=== PATIENT | male | born 1940 | race African-American/Black ===

== ENCOUNTER → 2018-01-31 | Outpatient (CLI) | payer BC ==
[~2018-01-31] MED LIST: ACET325; ASCO500; ASCO500 PO; ASPI325 PO; ASPI81CH PO; ASPI81EC PO; AZOPT 1% OU; AZOR PO; Azopt10 ML BOTHEYES; CHOL10002; CHOL10002 PO; FISH1000; FISH1000 PO; GABA100 PO; HTN MED; HYDCHL12.5; HYDCHL25 PO; METO50ER PO; OXYACE5T PO; PIOG30 PO; ROSU10TA; ROSU5 PO; SITA100T2 PO; SODCHL.65S; Tylenol325 MG PO
== END | disposition home or self-care (01) ==
LOC: PLD 07:47
DX: R31.0 Gross hematuria (principal)
CPT/HCPCS: 88108

== ENCOUNTER 2019-06-06 11:47 | Day surgery (SDC) | payer BC, MEDICARE ==
[~2019-06-06] VITALS: Ht 160 cm; Wt 77.4 kg
[2019-06-06] MEDS ORDERED: SITA100T2 PO (12:22)
[2019-06-06] MEDS ORDERED: PIOG30 PO (12:22)
[2019-06-06] MEDS ORDERED: LOSARTAN POTAS100 MG PO (12:23)
[2019-06-06] MEDS ORDERED: METO50ER PO (12:23)
[2019-06-06] MEDS ORDERED: FINA5 PO (12:23)
[2019-06-06] MEDS ORDERED: DORZOPSO BOTHEYES (12:24)
[2019-06-06] MEDS ORDERED: ALLO300 PO (12:24)
[2019-06-06] MEDS ORDERED: Ferus150 MG (12:24)
[2019-06-06] MEDS ORDERED: ASCO500 PO (12:25)
[2019-06-06] MEDS ORDERED: ACET500 PO (12:25)
[2019-06-06] MEDS ORDERED: GABA100 PO (12:25)
[2019-06-06] MEDS ORDERED: ALBU90OI61 INH (12:25)
[2019-06-06] MEDS ORDERED: Aspirin EC81 MG PO (12:25)
[2019-06-06] MEDS ORDERED: VITAMIN D32000 UNIT PO (12:26)
[2019-06-06] MEDS ORDERED: Fish Oil 10001000 MG PO (12:26)
== END 2019-06-06 14:08 | disposition home or self-care (01) ==
LOC: ORSCSDS 11:47
PROVIDERS: Internal Medicine Gastroenterology
PROC: 0DJD8ZZ Inspection of Lower Intestinal Tract, Via Natural or Artificial Opening Endoscopic (ICD-10-PCS; principal; 2019-06-06 13:00)
DX: Z12.11 Encounter for screening for malignant neoplasm of colon (principal); Z86.010 Personal history of colon polyps; K64.8 Other hemorrhoids; J45.909 Unspecified asthma, uncomplicated; J84.10 Pulmonary fibrosis, unspecified; J98.4 Other disorders of lung; E11.9 Type 2 diabetes mellitus without complications; E78.00 Pure hypercholesterolemia, unspecified; I10 Essential (primary) hypertension; G47.33 Obstructive sleep apnea (adult) (pediatric); Z79.899 Other long term (current) drug therapy; Z79.82 Long term (current) use of aspirin
CPT/HCPCS: 82947; J0706; J2704; J2785; J7120

== ENCOUNTER 2019-10-05 05:05 | Emergency (ER) | payer MEDICARE ==
[~2019-10-05] VITALS: Ht 160 cm; Wt 74.8 kg
[~2019-10-05 05:05] MED LIST changes: +ACET500 PO; +ALBU90OI61 INH; +ALLO300 PO; +Aspirin EC81 MG PO; +DORZOPSO BOTHEYES; +FINA5 PO; +Ferus150 MG; +Fish Oil 10001000 MG PO; +LOSARTAN POTAS100 MG PO; +VITAMIN D32000 UNIT PO
== END 2019-10-05 06:00 | disposition home or self-care (01) ==
LOC: ER 05:05
DX: R11.10 Vomiting, unspecified (principal); T50.B95A Adverse effect of other viral vaccines, initial encounter; I10 Essential (primary) hypertension; E78.5 Hyperlipidemia, unspecified; Z88.8 Allergy status to other drugs, medicaments and biological substances; Z88.1 Allergy status to other antibiotic agents; Z79.899 Other long term (current) drug therapy; Z79.82 Long term (current) use of aspirin
CPT/HCPCS: 99283

== ENCOUNTER 2022-09-30 09:24 | Day surgery (SDC) | payer MEDICARE ==
[~2022-09-30] VITALS: Ht 160 cm; Wt 71.6 kg
[2022-09-30] MEDS ORDERED: Alphagan P5 ML (09:56)
[2022-09-30] MEDS ORDERED: GABA100 (09:57)
[2022-09-30] MEDS ORDERED: LATA.005SO (09:57)
[2022-09-30] MEDS ORDERED: LIDO700A20 (09:57)
[2022-09-30] MEDS ORDERED: METF500 (09:57)
[2022-09-30] MEDS ORDERED: HYDCHL25 (09:57)
[2022-09-30] MEDS ORDERED: ROSU5 (09:58)
[2022-09-30] MEDS ORDERED: PIOG15 (09:58)
== END 2022-09-30 12:26 | disposition home or self-care (01) ==
LOC: ORSCSDS 09:24
PROVIDERS: Internal Medicine Gastroenterology
PROC: 0DBN8ZX Excision of Sigmoid Colon, Via Natural or Artificial Opening Endoscopic, Diagnostic (ICD-10-PCS; principal; 2022-09-30 11:00)
DX: Z12.11 Encounter for screening for malignant neoplasm of colon (principal); Z86.010 Personal history of colon polyps; K64.8 Other hemorrhoids; I12.9 Hypertensive chronic kidney disease with stage 1 through stage 4 chronic kidney disease, or unspecified chronic kidney disease; E11.22 Type 2 diabetes mellitus with diabetic chronic kidney disease; N18.9 Chronic kidney disease, unspecified; Z79.84 Long term (current) use of oral hypoglycemic drugs; Z79.899 Other long term (current) drug therapy; G47.33 Obstructive sleep apnea (adult) (pediatric); J45.909 Unspecified asthma, uncomplicated; I50.9 Heart failure, unspecified
CPT/HCPCS: 82947; 88305; J2704; J7120

== ENCOUNTER 2023-03-27 12:32 | Inpatient (IN) | payer MEDICARE ==
[~2023-03-27] VITALS: Ht 160 cm; Wt 73.7 kg
[~2023-03-27 12:32] MED LIST changes: +Alphagan P5 ML; +GABA100; +HYDCHL25; +LATA.005SO BOTHEYES; +LIDO700A20; +METF500; +PIOG15; +ROSU5
[2023-03-27 13:32] LABS: BASOPHILS ABSOLUTE AUTO 0.01 K/mm3 (0.00-0.23); BASOPHILS PERCENT AUTO 0 % (0-2); EOSINOPHILS PERCENT AUTO 0 % (0-6); Hematocrit 37.4 % (37.0-53.0); Hemoglobin 12.1 g/dL (13.5-17.5); IMMATURE GRAN ABSOLUTE AUTO 0.08 K/mm3 (0.00-0.10); IMMATURE GRAN PERCENT AUTO 1 % (0-1); LYMPHOCYTES ABSOLUTE AUTO 0.74 K/mm3 (0.84-5.20); LYMPHOCYTES PERCENT AUTO 5 % (21-46); MONOCYTES ABSOLUTE AUTO 1.52 K/mm3 (0.16-1.47); MONOCYTES PERCENT AUTO 10 % (4-13); Mean Corpuscular HGB 32.1 pg (26.0-34.0); Mean Corpuscular HGB Conc 32.4 g/dL (31.5-36.5); Mean Corpuscular Volume 99 fL (80-100); Mean Platelet Volume 11.5 fL (9.1-12.4); NEUTROPHILS ABSOLUTE AUTO 12.52 K/mm3 (1.96-9.15); NEUTROPHILS PERCENT AUTO 84 % (41-73); Platelet Count 127 K/mm3 (150-400); RDW Coefficient Variation 12.7 % (11.7-14.2); RDW Standard Deviation 46.7 fL (35.1-46.3); Red Blood Cell Count 3.77 M/mm3 (4.30-5.90); White Blood Cell Count 14.87 K/mm3 (4.00-11.30)
[2023-03-27] MEDS ORDERED: LOSA50 PO (13:34)
[2023-03-27] MEDS ORDERED: HYDCHL12.5 PO (13:35)
[2023-03-27 13:42] LABS: Albumin, Blood 3.4 g/dL (3.4-5.0); Albumin/Globulin Ratio 0.8 (0.8-1.8); Bilirubin, Total 1.2 mg/dL (0.1-1.0); Bun/Creatinine Ratio 15.8 (12.0-20.0); Calcium, Blood 9.1 mg/dL (8.5-10.1); Creatinine, Blood 0.95 mg/dL (0.60-1.20); Globulin, Blood 4.5 g/dL (2.2-4.0); Potassium, Blood 3.4 mmol/L (3.5-5.5); Total Protein, Blood 7.9 g/dL (6.4-8.2)
[2023-03-27 13:58] LABS: Source, Urine Clean Catch
[2023-03-27 14:06] LABS: Bilirubin, Urine Neg (Neg); Blood, Urine 4+ (Neg); Color, Urine Amber (P-Yellow); Glucose Qualitative, Urine Neg (Neg); Ketones, Urine Neg (Neg); Leukocyte Esterase, Urine Neg (Neg); Nitrite, Urine Neg (Neg); Protein, Urine 3+ (Neg); Specific Gravity, Urine 1.015 (1.003-1.022); Urobilinogen, Urine NORM (Normal)
[2023-03-27 14:16] LABS: Appearance, Urine Clear (Clear)
[2023-03-27 14:17] LABS: Hyaline Casts 0-2 /lpf (0-2)
[2023-03-27 14:18] LABS: Bacteria Mod /hpf; Mucus Light (0-Heavy); Squamous Epithelial Cells Rare /hpf (Few); White Blood Cells, Urine 0-2 /hpf (0-5)
[2023-03-27 14:48] LABS: Influenza A, PCR NEGATIVE (NEGATIVE); Influenza B, PCR NEGATIVE (NEGATIVE); Resp Syncytial Virus, PCR NEGATIVE (NEGATIVE); SARS-Cov-2 (COVID-19) PCR, MMC NEGATIVE (NEGATIVE)
[2023-03-27] MEDS ORDERED: Bactrim Ds Tab1 EACH PO (15:43)
[2023-03-27 19:10] VITALS: BP 155/80
--- NOTE | 2023-03-27 19:25 | NUR ---
ADMIT: PT ARRIVED TO [place] [id number] @1845 VIA GURNEY. PT INCONTINENT ON TRANSFER. BLUE BRIEF PLACED. PER REPORT, PT VERY WEAK. OT/PT EVAL ORDERED. LACTIC CAME BACK AT 2.2. NIGHT NURSE AWARE. 11/28 NS @50/HR. CALL LIGHT IN REACH. REPORT GIVEN TO MEDICAL LIAISON RN.
[2023-03-28 03:47] VITALS: BP 132/95
[2023-03-28 06:54] LABS: Hematocrit 35.6 % (37.0-53.0); Hemoglobin 11.9 g/dL (13.5-17.5); Mean Corpuscular HGB 32.2 pg (26.0-34.0); Mean Corpuscular HGB Conc 33.4 g/dL (31.5-36.5); Mean Corpuscular Volume 96 fL (80-100); RDW Coefficient Variation 12.6 % (11.7-14.2); RDW Standard Deviation 45.2 fL (35.1-46.3); White Blood Cell Count 8.01 K/mm3 (4.00-11.30)
[2023-03-28 06:58] LABS: Mean Platelet Volume 12.2 fL (9.1-12.4)
[2023-03-28 07:24] VITALS: BP 126/86
[2023-03-28 07:24] LABS: Albumin, Blood 2.8 g/dL (3.4-5.0); Anion Gap 4 mmol/L (6-16); Blood Urea Nitrogen 19 mg/dL (8-24); Bun/Creatinine Ratio 17.4 (12.0-20.0); CO2, Blood 29 mmol/L (21-32); Calcium, Blood 8.5 mg/dL (8.5-10.1); Chloride, Blood 102 mmol/L (98-108); Creatinine, Blood 1.09 mg/dL (0.60-1.20); Glomerular Filtration Rate 68 (60-); Glucose, Blood 123 mg/dL (70-99); Magnesium, Blood 1.4 mg/dL (1.6-2.4); Phosphorus, Blood 1.5 mg/dL (2.5-4.9); Potassium, Blood 3.4 mmol/L (3.5-5.5); Sodium, Blood 135 mmol/L (136-145)
--- NOTE | 2023-03-28 07:41 | NUR ---
NOTIFIED DR. ALVARADO ABOUT PT'S LACTIC = 2.5. CXR 1 V ORDERED NS @100.
[2023-03-28 07:50] LABS: BAND PERCENT MAN 24 % (0-8); BASOPHILS PERCENT MAN 0 % (0-2); EOSINOPHILS PERCENT MAN 0 % (0-6); METAMYELOCYTE ABSOLUTE MAN 0.24 K/mm3 (0.00-0.00); METAMYELOCYTE PERCENT MAN 3 % (0-0); MONOCYTES ABSOLUTE MAN 0.08 K/mm3 (0.16-1.47); MONOCYTES PERCENT MAN 1 % (4-13); MYELOCYTE ABSOLUTE MAN 0.16 K/mm3 (0.00-0.00); MYELOCYTE PERCENT MAN 2 % (0-0); NEUTROPHILS ABSOLUTE MAN 7.52 K/mm3 (1.96-9.15); SEG NEUTROPHILS PERCENT MAN 70 % (41-73); TOTAL CELLS COUNTED 100
[2023-03-28 07:51] LABS: Platelet Count 87 K/mm3 (150-400)
--- NOTE | 2023-03-28 11:17 | NUR ---
After receiving a request by cell phone call from the patient to come and visit, I enter patient's rm. 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 Patient is lying in bed and alert. Patient tells me about the events that led to his hospitalization with the aid of his sales service assistant, Viky, Patient is slightly confused at times and so Viky helps with time and place and other missing details. Patient is quiet but wanting close friends and close lutheran members to visit. He seems a bit overwhelmed by the experience and receives hands to hold and reassure well. I provide a calming presence and prayer. Patient responded well and showed signs of an elevated mood.
[2023-03-28 15:52] VITALS: BP 116/70
--- NOTE | 2023-03-28 17:17 | NUR ---
SUMMARY- PT AAOX3 THIS SHIFT. DISORIENTED TO SITUATION. RN GOT PT UP TO THE SINK TO WASH FACE AND BRUSH TEETH, OTHERWISE, PT WAS IN BED MOST OF THE DAY. PT SAT AT EDGE OF BED TO EAT MEALS. CALM AND COOPERATIVE. SBA.
[2023-03-28 19:43] VITALS: BP 117/76
[2023-03-29 02:34] VITALS: BP 139/84
[2023-03-29 05:21] LABS: Hematocrit 34.2 % (37.0-53.0); Hemoglobin 11.2 g/dL (13.5-17.5); Mean Corpuscular HGB 32.4 pg (26.0-34.0); Mean Corpuscular HGB Conc 32.7 g/dL (31.5-36.5); Mean Corpuscular Volume 99 fL (80-100); Mean Platelet Volume 11.9 fL (9.1-12.4); Platelet Count 99 K/mm3 (150-400); RDW Coefficient Variation 12.7 % (11.7-14.2); RDW Standard Deviation 46.1 fL (35.1-46.3); Red Blood Cell Count 3.46 M/mm3 (4.30-5.90); White Blood Cell Count 21.68 K/mm3 (4.00-11.30)
[2023-03-29 05:56] LABS: Albumin, Blood 2.5 g/dL (3.4-5.0); Anion Gap 5 mmol/L (6-16); Blood Urea Nitrogen 21 mg/dL (8-24); Bun/Creatinine Ratio 21.7 (12.0-20.0); CO2, Blood 28 mmol/L (21-32); Calcium, Blood 8.3 mg/dL (8.5-10.1); Chloride, Blood 101 mmol/L (98-108); Creatinine, Blood 0.97 mg/dL (0.60-1.20); Glomerular Filtration Rate 78 (60-); Glucose, Blood 104 mg/dL (70-99); Magnesium, Blood 1.9 mg/dL (1.6-2.4); Phosphorus, Blood 1.7 mg/dL (2.5-4.9); Potassium, Blood 3.4 mmol/L (3.5-5.5); Sodium, Blood 134 mmol/L (136-145)
--- NOTE | 2023-03-29 06:01 | NUR ---
SHIFT SUMMARY PT SITTING UP IN CHAIR DURING BEDSIDE REPORT- PT AMBULATED TO BR WITH SBA FWW, PT USES CALL LIGHT APPROPRIATE, IV INFUSING WITHOUT PROBLEMS, PT ON TELE SINUS AT 76- PT RETURNED TO BED AFTER VISITING WITH FRIEND, PT TOOK SCHEDULED HS MEDICATION WITHOUT PROBLEMS, PT USED URINAL T/O NIGHT WITHOUT PROBLEMS/ BED LOW POSITION, CALL LIGHT WITHIN REACH
[2023-03-29 06:23] LABS: BAND PERCENT MAN 14 % (0-8); BASOPHILS PERCENT MAN 0 % (0-2); EOSINOPHILS PERCENT MAN 0 % (0-6); LYMPHOCYTES ABSOLUTE MAN 0.43 K/mm3 (0.84-5.20); LYMPHOCYTES PERCENT MAN 2 % (21-46); METAMYELOCYTE ABSOLUTE MAN 0.65 K/mm3 (0.00-0.00); METAMYELOCYTE PERCENT MAN 3 % (0-0); MONOCYTES ABSOLUTE MAN 1.08 K/mm3 (0.16-1.47); MONOCYTES PERCENT MAN 5 % (4-13); NEUTROPHILS ABSOLUTE MAN 19.51 K/mm3 (1.96-9.15); SEG NEUTROPHILS PERCENT MAN 76 % (41-73); TOTAL CELLS COUNTED 100
[2023-03-29 07:56] VITALS: BP 138/72
--- NOTE | 2023-03-29 13:01 | NUR ---
Patient is stiing on a chair and alert. He shares about his evie, talking about the love of [place] and balancing that message with obedience to God. He tells me about the importance of keeping patient information private and specifically his (not in regards to hospital staff but more about the Religion and the community). He allows for me to pray for him and voices appreciation for it. We also discuss the importance of self-care, rest and taking the time to heal. Patient responds well and shows signs of greater peace. I will continue to remain avaliable to patient.
[2023-03-29 15:11] VITALS: BP 137/82
--- NOTE | 2023-03-29 17:11 | NUR ---
PATIENT A/OX4, UP WALKING IN HALLS TODAY WITH PT. REQUIRES FWW, GB AND 1 ASSIST. VSS, ON RA. SKIN INTACT. HAD LARGE BM TODAY. CONTINENT OF URINE/STOOL. TOLERATING CARDIAC DIET. DENIES ANY PAIN OR DISCOMFORT. FALL PRECAUTIONS IN PLACE PATIENT CAN BE IMPULSIVE. NO NEW CONCERNS THIS SHIFT.
[2023-03-29 21:00] VITALS: BP 126/81
--- NOTE | 2023-03-30 04:06 | NUR ---
SHIFT SUMMARY PATIENT HAD NO ACUTE CHANGES. AOX X4 AND ONE ASSIST W/FWW TO BSC. PIVS REMAIN INTACT. TELE MONITOR NSR 83. NO DIZZINESS OBSERVED. DENIES CHEST PAIN, SOB, AND N/V. VSS/AFEBRILE. RESTING IN CHAIR FIRST HALF OF SHIFT. CALL LIGHT IN REACH. BED IN LOWEST POSITION. WILL CONTINUE TO MONITOR UNTIL DAY SHIFT NURSE ASSUMES CARE.
[2023-03-30 04:28] VITALS: BP 148/79
[2023-03-30 05:24] LABS: Hematocrit 37.4 % (37.0-53.0); Hemoglobin 12.1 g/dL (13.5-17.5); Mean Corpuscular HGB 32.2 pg (26.0-34.0); Mean Corpuscular HGB Conc 32.4 g/dL (31.5-36.5); Mean Corpuscular Volume 100 fL (80-100); Mean Platelet Volume 11.9 fL (9.1-12.4); Platelet Count 123 K/mm3 (150-400); RDW Coefficient Variation 12.6 % (11.7-14.2); RDW Standard Deviation 46.2 fL (35.1-46.3); Red Blood Cell Count 3.76 M/mm3 (4.30-5.90); White Blood Cell Count 19.76 K/mm3 (4.00-11.30)
[2023-03-30 05:30] LABS: Albumin, Blood 2.3 g/dL (3.4-5.0); Anion Gap 3 mmol/L (6-16); Blood Urea Nitrogen 20 mg/dL (8-24); Bun/Creatinine Ratio 21.1 (12.0-20.0); CO2, Blood 28 mmol/L (21-32); Chloride, Blood 106 mmol/L (98-108); Creatinine, Blood 0.95 mg/dL (0.60-1.20); Glomerular Filtration Rate 80 (60-); Glucose, Blood 117 mg/dL (70-99); Potassium, Blood 4.5 mmol/L (3.5-5.5); Sodium, Blood 137 mmol/L (136-145)
[2023-03-30 06:04] LABS: BAND PERCENT MAN 8 % (0-8); BASOPHILS PERCENT MAN 0 % (0-2); EOSINOPHILS ABSOLUTE MAN 0.19 K/mm3 (0.00-0.68); EOSINOPHILS PERCENT MAN 1 % (0-6); LYMPHOCYTES ABSOLUTE MAN 0.19 K/mm3 (0.84-5.20); LYMPHOCYTES PERCENT MAN 1 % (21-46); MONOCYTES ABSOLUTE MAN 1.97 K/mm3 (0.16-1.47); MONOCYTES PERCENT MAN 10 % (4-13); NEUTROPHILS ABSOLUTE MAN 17.38 K/mm3 (1.96-9.15); SEG NEUTROPHILS PERCENT MAN 80 % (41-73); TOTAL CELLS COUNTED 100
[2023-03-30 09:10] VITALS: BP 131/71
[2023-03-30] MEDS ORDERED: LEVO750 PO (09:58)
[2023-03-30] MEDS ORDERED: VISBIOME 112.51 EACH PO (09:58)
--- NOTE | 2023-03-30 10:35 | NUR ---
Pt. is awake and sitting up in a chair. Pt. is pleasant and welcomes my visit. 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 Communicated to Pt. good wishes from the entire Spiritual Care team. Pt. is expectantly anticipating discharge before lunch. Pt. displays evidence of awareness and engagement. Prayed with Pt. Pt. verbalized gratitude for the spiritual care visit.
--- NOTE | 2023-03-30 11:06 | NUR ---
Patient calls me on my cell phone and asks if I could come and see him. I immediately respond to his request. Patient is sitting on a chair and alert. 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 We talk about the state of the country and the amish and he emphasizes the importance on having evie in [place] and obeying the scriptures. I normalize patient's experience and listen empathically. Patient responds well and showed signs of an elevated mood.
--- NOTE | 2023-03-30 13:01 | NUR ---
pt reported to caregiver that he was seeing things last night on waking, thought there was new technology in the room, he is being discharged home, notified Dr. Leo, he came to see pt, cleared him to go. went over discharge with caregiver, and removed iv x2, new meds faxed to his pharmacy, left via wheelchair with drafter refrigeration in attendence.
== END 2023-03-30 13:06 | disposition home or self-care (01) | DRG 193 ==
LOC: ER 12:32 → MEDS 16:46 → EDBEDREQ 17:50 → MEDS 18:42 → ENPENDDIS 03-30 08:55 → MEDS 03-30 13:06
PROVIDERS: Emergency Medicine; ADMIT Family Medicine
DX: J18.9 Pneumonia, unspecified organism (principal); A41.9 Sepsis, unspecified organism; G93.41 Metabolic encephalopathy; I50.20 Unspecified systolic (congestive) heart failure; E87.20 Acidosis, unspecified; E78.5 Hyperlipidemia, unspecified; E87.6 Hypokalemia; E83.39 Other disorders of phosphorus metabolism; I11.0 Hypertensive heart disease with heart failure; Z20.822 Contact with and (suspected) exposure to COVID-19; E83.42 Hypomagnesemia; L03.032 Cellulitis of left toe; Z88.1 Allergy status to other antibiotic agents; Z88.8 Allergy status to other drugs, medicaments and biological substances; Z90.5 Acquired absence of kidney; Z98.890 Other specified postprocedural states; Z79.82 Long term (current) use of aspirin; Z79.51 Long term (current) use of inhaled steroids; Z79.899 Other long term (current) drug therapy
CPT/HCPCS: 0241U; 36415; 71045; 71046; 80053; 80069; 81001; 82330; 83605; 83735; 83880; 84145; 85025; 87040; 87076; 87086; 93005; 93010; 93306; 94760; 96374; 97116; 97162; 97166; 97530; 99285-25; A9270; J1650; J1956; J3475; J7030; J7060

== ENCOUNTER → 2025-04-10 | Outpatient (CLI) | payer MEDICARE ==
[~2025-04-10] MED LIST changes: +Bactrim Ds Tab1 EACH PO; +HYDCHL12.5 PO; +LEVO750 PO; +LOSA50 PO; +VISBIOME 112.51 EACH PO
[2025-04-10 19:08] LABS: Microalb/Creat Ratio UR, Rand 400.725 mg/g (0.000-30.000)
== END ==
LOC: LAB SHORT 10:40 → LAB 10:40
PROVIDERS: Internal Medicine
DX: E11.9 Type 2 diabetes mellitus without complications (principal)
CPT/HCPCS: 82043; 82570

== ENCOUNTER 2025-08-18 06:47 | Inpatient (IN) | payer MEDICARE ==
[~2025-08-18] VITALS: Ht 160 cm; Wt 69.7 kg
[2025-08-18 08:18] LABS: BASOPHILS ABSOLUTE AUTO 0.01 K/mm3 (0.00-0.23); BASOPHILS PERCENT AUTO 0 % (0-2); EOSINOPHILS ABSOLUTE AUTO 0.06 K/mm3 (0.00-0.68); EOSINOPHILS PERCENT AUTO 1 % (0-6); Hematocrit 43.1 % (37.0-53.0); Hemoglobin 13.8 g/dL (13.5-17.5); IMMATURE GRAN ABSOLUTE AUTO 0.02 K/mm3 (0.00-0.10); IMMATURE GRAN PERCENT AUTO 0 % (0-1); LYMPHOCYTES ABSOLUTE AUTO 1.26 K/mm3 (0.84-5.20); LYMPHOCYTES PERCENT AUTO 16 % (21-46); MONOCYTES ABSOLUTE AUTO 0.50 K/mm3 (0.16-1.47); MONOCYTES PERCENT AUTO 6 % (4-13); Mean Corpuscular HGB Conc 32.0 g/dL (31.5-36.5); Mean Corpuscular Volume 104 fL (80-100); NEUTROPHILS ABSOLUTE AUTO 6.27 K/mm3 (1.96-9.15); NEUTROPHILS PERCENT AUTO 77 % (41-73); NRBC ABSOLUTE 0.00 K/mm3 (0.00-0.02); NRBC Auto 0.0 /100 WBC (0.0-0.2); Platelet Count 149 K/mm3 (150-400); RDW Coefficient Variation 12.5 % (11.7-14.2); RDW Standard Deviation 48.4 fL (35.1-46.3)
[2025-08-18 08:46] LABS: Alanine Aminotransfer (ALT/SGP 40.0 U/L (12-78); Albumin, Blood 3.6 g/dL (3.4-5.0); Albumin/Globulin Ratio 0.8 (0.8-1.8); Anion Gap 6.0 mmol/L (3-11); Aspartate Aminotrans (AST/SGOT 36.0 U/L (12-37); Bilirubin, Total 0.8 mg/dL (0.1-1.0); Blood Urea Nitrogen 25.0 mg/dL (8-24); CO2, Blood 32.0 mmol/L (21-32); Calcium, Blood 9.7 mg/dL (8.5-10.1); Chloride, Blood 100.0 mmol/L (98-108); Creatinine, Blood 1.07 mg/dL (0.60-1.20); Globulin, Blood 4.4 g/dL (2.2-4.0); Glucose, Blood 126.0 mg/dL (70-99); Potassium, Blood 3.9 mmol/L (3.5-5.5); Sodium, Blood 134.0 mmol/L (136-145); Total Protein, Blood 8.0 g/dL (6.4-8.2)
[2025-08-18 09:10] LABS: Source, Urine Clean Catch
[2025-08-18 09:15] LABS: Bilirubin, Urine Neg (Neg); Glucose Qualitative, Urine Neg (Neg); Ketones, Urine Neg (Neg); Leukocyte Esterase, Urine Neg (Neg); Protein, Urine 3+ (Neg); Specific Gravity, Urine 1.010 (1.003-1.022); Urobilinogen, Urine NORM (Normal)
[2025-08-18 09:18] LABS: Color, Urine Yellow (P-Yellow)
[2025-08-18 09:33] LABS: White Blood Cells, Urine 0-2 /hpf (0-5)
[2025-08-18] MEDS ORDERED: FLU VACC TS2025-26(6MOS UP)/PF 45 MCG/0.5 ML SYRINGE IM SCH (10:20)
[2025-08-18] MEDS ORDERED: Ondansetron HCl 2 MG / ML 2ML Vial IV PRN (10:20)
--- NOTE | 2025-08-18 11:51 | NUR ---
The patient comes to my office at 0630 and asks me to take him to the ER because he is experiencing abdomen pain. I assist with helping him get checked in and provide companionship as he works through the process once brought back to ER15. I conduct several visits throughout the AM helping cancel his doctor's appointment for this day and providing emotional support. I will continue to remain available.
--- NOTE | 2025-08-18 16:21 | NUR ---
Patient is lying in bed and alert. He asks me to retrieve his travel bag from the car, which I gladly do. When I return I provided prayer for the patient. The patient showed signs of greater peace and voiced appreciation for the visit. I will continue to remain available to the patient.
[2025-08-18 17:35] VITALS: BP 177/94
[2025-08-18] MEDS ORDERED: TIMDOROPSO BOTHEYES (17:39)
--- NOTE | 2025-08-18 18:21 | NUR ---
ASSUMPTION ASSUMED CARE OF PT FROM ER. ADMISSION COMPLETED. SALVADOR PUGA. PT PROVIDED WATER AND JELLO. PT VOIDING. PT STATES MINIMAL PAIN / DENYING NEEDS FOR PAIN MEDS. PT DENYING NEEDS CURRENTLY. ORIENTED TO ROOM, HOSPITAL POLICIES, TREATMENT PLAN. PT TO BE NPO @0000.
[2025-08-18 19:07] VITALS: BP 152/90
[2025-08-18] MEDS ORDERED: Albuterol HFA200 ACT/6.7 GM INH INH PRN (19:35)
[2025-08-18] MEDS ORDERED: Dorzolamide/Timolol Opth Soln 10 ML BOTHEYES SCH (21:00)
[2025-08-18] MEDS ORDERED: Lactobacil 2-S.Thermo-Bifido 1 1 Cap PO SCH (21:00)
[2025-08-18] MEDS ORDERED: Latanoprost 0.005% Opth Soln 2.5 ML BOTHEYES SCH (21:00)
[2025-08-19] VITALS (14 sets, daily range): BP systolic 143–175; BP diastolic 77–99
--- NOTE | 2025-08-19 04:30 | NUR ---
SHIFT SUMMARY PT ADMITTED FOR R INCARCERATED INGUINAL HERNIA W/ OBSTRUCTION. NO ACUTE CHANGES. A&O X4. PT IS WRANGELL WITH HEARING AIDES. PT DENIES PAIN, N&V. PT INDEPENDENT IN ROOM. LR RUNNING @ 50ML/HR PER EMAR. PLAN FOR SURGERY TODAY. PT NPO SINCE 0000. PT RESTING COMFORTABLY WITH EVEN UNLABORED BREATHS. CALL LIGHT WITHIN REACH.
--- NOTE | 2025-08-19 07:48 | NUR ---
Father Matthew is sitting on a chair and alert. He speaks about his good night sleep, the satisfaction of being able to eat a little last night and his lost Rosary (I will bring him one). I provided therapeutic listening and a calming presence as he anxiously awaits a surgery today.
[2025-08-19] MEDS ORDERED: CeFAZolin Sodium 2,000 MG in NS 100 ML IV SCH (12:05)
[2025-08-19] MEDS ORDERED: Lidocaine HCl 4% 5 ML SDA ONE (12:37)
[2025-08-19] MEDS ORDERED: Rocuronium Bromide 10 MG/ML 5ML Injection IV ONE ×3 (13:07→16:46)
[2025-08-19] MEDS ORDERED: FentaNYL Citrate 50 MCG/ML 2 ML Injection ONE ×2 (13:08→18:37)
--- NOTE | 2025-08-19 13:41 | NUR ---
PT TRANSPORTED TO [facility] VIA GURNEY. History, Chart, Medications and Allergies reviewed before start of procedure. Patient confirms NPO status and agrees with scheduled surgery. AGREES WITH PLANNED SURGERY.
[2025-08-19] MEDS ORDERED: Bupivacaine 0.5% HCl 5 MG/ML 30MLVIAL ONE (14:20)
[2025-08-19] MEDS ORDERED: Sugammadex Sodium 200 MG/2ML SDV (100 MG/ML) ONE (14:58)
[2025-08-19] MEDS ORDERED: Dexamethasone Sod Phos 10 MG/ML 1ML VIAL ONE ×2 (14:59→18:48)
[2025-08-19] MEDS ORDERED: Ondansetron HCl 2 MG / ML 2ML Vial ONE ×2 (14:59→18:48)
[2025-08-19] MEDS ORDERED: Albuterol 2.5 MG/3 ML VIAL INH PRN (15:15)
[2025-08-19] MEDS ORDERED: HYDROmorphone HCl/Pf 1MG SYR IV PRN (15:15)
[2025-08-19] MEDS ORDERED: FentaNYL Citrate 50 MCG/ML 2 ML Injection IV PRN ×2 (15:15)
[2025-08-19] MEDS ORDERED: Ondansetron HCl 2 MG / ML 2ML Vial IV PRN (15:15)
[2025-08-19] MEDS ORDERED: ePHEDrine Sulfate 50 MG/ML 1ML Injection ONE (15:54)
[2025-08-19] MEDS ORDERED: Ketorolac Tromethamine 30mg Vial ONE (18:02)
[2025-08-19] MEDS ORDERED: Metoclopramide HCl 5MG / ML 2ML Vial ONE (18:48)
[2025-08-20 02:35] VITALS: BP 169/82
--- NOTE | 2025-08-20 04:42 | NUR ---
NOC SUMMARY- PT HAS DENIED HAVING ANY PAIN. PT HAS HAD INCREASED CONFUSION SINCE SX. PT HAS BEEN AMBULATORY AND VOIDING. PT IS TOLERATING PO FLUIDS. PT HAS BEEN RESTING COMFORTABLY. PT BED ALARM ON AND CALL LIGHT IN REACH.
[2025-08-20 07:25] VITALS: BP 152/77
[2025-08-20 11:24] LABS: BASOPHILS ABSOLUTE AUTO 0.02 K/mm3 (0.00-0.23); BASOPHILS PERCENT AUTO 0 % (0-2); EOSINOPHILS ABSOLUTE AUTO 0.01 K/mm3 (0.00-0.68); EOSINOPHILS PERCENT AUTO 0 % (0-6); Hematocrit 41.7 % (37.0-53.0); Hemoglobin 13.2 g/dL (13.5-17.5); IMMATURE GRAN ABSOLUTE AUTO 0.04 K/mm3 (0.00-0.10); IMMATURE GRAN PERCENT AUTO 0 % (0-1); LYMPHOCYTES ABSOLUTE AUTO 0.68 K/mm3 (0.84-5.20); LYMPHOCYTES PERCENT AUTO 5 % (21-46); MONOCYTES ABSOLUTE AUTO 0.63 K/mm3 (0.16-1.47); MONOCYTES PERCENT AUTO 4 % (4-13); Mean Corpuscular HGB Conc 31.7 g/dL (31.5-36.5); Mean Corpuscular Volume 105 fL (80-100); NEUTROPHILS ABSOLUTE AUTO 12.91 K/mm3 (1.96-9.15); NEUTROPHILS PERCENT AUTO 90 % (41-73); NRBC ABSOLUTE 0.00 K/mm3 (0.00-0.02); NRBC Auto 0.0 /100 WBC (0.0-0.2); Platelet Count 145 K/mm3 (150-400); RDW Coefficient Variation 12.4 % (11.7-14.2); RDW Standard Deviation 48.2 fL (35.1-46.3)
[2025-08-20 12:00] LABS: Alanine Aminotransfer (ALT/SGP 30.0 U/L (12-78); Albumin, Blood 3.1 g/dL (3.4-5.0); Albumin/Globulin Ratio 0.7 (0.8-1.8); Anion Gap 12.0 mmol/L (3-11); Aspartate Aminotrans (AST/SGOT 43.0 U/L (12-37); Bilirubin, Total 0.9 mg/dL (0.1-1.0); Blood Urea Nitrogen 29.0 mg/dL (8-24); CO2, Blood 25.0 mmol/L (21-32); Calcium, Blood 8.9 mg/dL (8.5-10.1); Chloride, Blood 101.0 mmol/L (98-108); Creatinine, Blood 1.49 mg/dL (0.60-1.20); Globulin, Blood 4.5 g/dL (2.2-4.0); Glucose, Blood 166.0 mg/dL (70-99); Potassium, Blood 4.4 mmol/L (3.5-5.5); Sodium, Blood 134.0 mmol/L (136-145); Total Protein, Blood 7.6 g/dL (6.4-8.2)
--- NOTE | 2025-08-20 12:25 | NUR ---
ASSUMED CARE OF PT @0700 AXO4- EMMONAK. LAP SITED CDI. UMBILICAL SITE COVERED WITH XEROFORM/TEGADERM, CDI. VSS. PT DENYING BURGESS. TOLERATING PO INTAKE WELL. VOIDING. PASSING GAS. PT INDEPENDENTLY AMBULATING AROUND ROOM. MANY VISITORS IN AND AOUT OF ROOM. DR CUEVA AND DR RENEE DEEM PT ABLE TO DC. DC ORDERS RECEIVED. POWERFGLIDE PULLED OUT AND DRESSED.DC INSTRUCTIONS WILL BE GIVEN WITH PT'S SUPPORT PEOPLE UPON ARRIVAL. AWAITING ARRIVAL OF COLLEAGUES AROUND 1400.
--- NOTE | 2025-08-20 14:08 | NUR ---
PT DC'D @2750 WITH [facility]. NO ACUTE CHANGES POST ASSUMPTION OF CARE NOTE. POWERGLIDE REMOVED. TOLERATED LUNCH WELL. VOIDING WELL. INDEPENDENT IN ROOM. DC INSTRUCTIONS PROVIDED TO PT AND VISITORS IN ROOM. DRESSINGS CDI. PT WHEELED OUT OF ROOM WITH BELONGINGS @9265.
== END 2025-08-20 14:11 | disposition home or self-care (01) | DRG 351 ==
LOC: ER 06:47 → SURS 06:48
PROVIDERS: Emergency Medicine; Surgery; ADMIT Hospitalist
PROC: 0WQF3ZZ Repair Abdominal Wall, Percutaneous Approach (ICD-10-PCS; 2025-08-19)
PROC: 8E0W4CZ Robotic Assisted Procedure of Trunk Region, Percutaneous Endoscopic Approach (ICD-10-PCS; 2025-08-19)
PROC: 0YU54JZ Supplement Right Inguinal Region with Synthetic Substitute, Percutaneous Endoscopic Approach (ICD-10-PCS; principal; 2025-08-19 14:00)
DX: K40.31 Unilateral inguinal hernia, with obstruction, without gangrene, recurrent (principal); I50.32 Chronic diastolic (congestive) heart failure; K42.0 Umbilical hernia with obstruction, without gangrene; R18.8 Other ascites; J45.909 Unspecified asthma, uncomplicated; N40.0 Benign prostatic hyperplasia without lower urinary tract symptoms; I11.0 Hypertensive heart disease with heart failure; M10.9 Gout, unspecified; I08.3 Combined rheumatic disorders of mitral, aortic and tricuspid valves; Z88.1 Allergy status to other antibiotic agents; G47.33 Obstructive sleep apnea (adult) (pediatric); E11.9 Type 2 diabetes mellitus without complications; Z88.8 Allergy status to other drugs, medicaments and biological substances; Z79.82 Long term (current) use of aspirin; Z79.899 Other long term (current) drug therapy; I27.20 Pulmonary hypertension, unspecified
CPT/HCPCS: 36415; 74176; 80053; 81001; 82947; 85025; 93306; 99285-25; A9270; C1751; C1781; G0378; J0690; J1100; J1885; J2003; J2405; J2704; J2765; J3010; J7120

== ENCOUNTER 2025-10-01 10:51 | Day surgery (SDC) | payer MEDICARE ==
[~2025-10-01] VITALS: Ht 160 cm; Wt 67.4 kg
[~2025-10-01 10:51] MED LIST changes: +TIMDOROPSO BOTHEYES
[2025-10-01 14:06] VITALS: BP 151/74
== END 2025-10-01 14:30 | disposition home or self-care (01) ==
LOC: ORSCSDS 10:51
PROVIDERS: Internal Medicine Gastroenterology
PROC: 0DBH8ZX Excision of Cecum, Via Natural or Artificial Opening Endoscopic, Diagnostic (ICD-10-PCS; principal; 2025-10-01 12:15)
PROC: 0DBK8ZX Excision of Ascending Colon, Via Natural or Artificial Opening Endoscopic, Diagnostic (ICD-10-PCS; principal; 2025-10-01 12:15)
DX: Z12.11 Encounter for screening for malignant neoplasm of colon (principal); D12.0 Benign neoplasm of cecum; Z86.0101 Personal history of adenomatous and serrated colon polyps; I10 Essential (primary) hypertension; E78.5 Hyperlipidemia, unspecified; E11.9 Type 2 diabetes mellitus without complications; G47.33 Obstructive sleep apnea (adult) (pediatric); N40.0 Benign prostatic hyperplasia without lower urinary tract symptoms; Z79.82 Long term (current) use of aspirin; Z79.84 Long term (current) use of oral hypoglycemic drugs; Z79.899 Other long term (current) drug therapy; K63.5 Polyp of colon
CPT/HCPCS: 82947; 88305; J2704; J7120

== ENCOUNTER 2025-10-19 23:28 | Emergency (ER) | payer MEDICARE ==
[~2025-10-19] VITALS: Ht 152.4 cm; Wt 54.4 kg
[2025-10-19] MEDS ORDERED: Oxymetazoline 0.05% Nasal Relief Spray 15mL BTL TOP ONE (23:45)
[2025-10-20 00:02] LABS: BASOPHILS ABSOLUTE AUTO 0.02 K/mm3 (0.00-0.23); BASOPHILS PERCENT AUTO 0 % (0-2); EOSINOPHILS ABSOLUTE AUTO 0.31 K/mm3 (0.00-0.68); EOSINOPHILS PERCENT AUTO 5 % (0-6); Hematocrit 41.3 % (37.0-53.0); Hemoglobin 12.6 g/dL (13.5-17.5); IMMATURE GRAN ABSOLUTE AUTO 0.02 K/mm3 (0.00-0.10); IMMATURE GRAN PERCENT AUTO 0 % (0-1); LYMPHOCYTES ABSOLUTE AUTO 1.49 K/mm3 (0.84-5.20); LYMPHOCYTES PERCENT AUTO 24 % (21-46); MONOCYTES ABSOLUTE AUTO 0.80 K/mm3 (0.16-1.47); MONOCYTES PERCENT AUTO 13 % (4-13); Mean Corpuscular HGB Conc 30.5 g/dL (31.5-36.5); Mean Corpuscular Volume 107 fL (80-100); NEUTROPHILS ABSOLUTE AUTO 3.67 K/mm3 (1.96-9.15); NEUTROPHILS PERCENT AUTO 58 % (41-73); NRBC ABSOLUTE 0.00 K/mm3 (0.00-0.02); NRBC Auto 0.0 /100 WBC (0.0-0.2); Platelet Count 134 K/mm3 (150-400); RDW Coefficient Variation 12.6 % (11.7-14.2); RDW Standard Deviation 49.8 fL (35.1-46.3)
[2025-10-20 00:17] LABS: Prothrombin Time Results 10.9 Sec (9.7-11.5)
[2025-10-20 00:27] LABS: Alanine Aminotransfer (ALT/SGP 24.0 U/L (12-78); Albumin, Blood 3.2 g/dL (3.4-5.0); Albumin/Globulin Ratio 0.8 (0.8-1.8); Anion Gap 7.0 mmol/L (3-11); Aspartate Aminotrans (AST/SGOT 34.0 U/L (12-37); Bilirubin, Total 0.3 mg/dL (0.1-1.0); Blood Urea Nitrogen 25.0 mg/dL (8-24); CO2, Blood 30.0 mmol/L (21-32); Calcium, Blood 8.8 mg/dL (8.5-10.1); Chloride, Blood 104.0 mmol/L (98-108); Creatinine, Blood 1.06 mg/dL (0.60-1.20); Globulin, Blood 4.2 g/dL (2.2-4.0); Glucose, Blood 97.0 mg/dL (70-99); Potassium, Blood 4.1 mmol/L (3.5-5.5); Sodium, Blood 137.0 mmol/L (136-145); Total Protein, Blood 7.4 g/dL (6.4-8.2)
[2025-10-20 01:00] VITALS: BP 168/93
[2025-10-20] MEDS ORDERED: CLIN300 PO (14:37)
== END 2025-10-20 01:15 | disposition home or self-care (01) ==
LOC: ER 23:28
PROVIDERS: Emergency Medicine
DX: R04.0 Epistaxis (principal); I10 Essential (primary) hypertension; E78.5 Hyperlipidemia, unspecified; Z79.82 Long term (current) use of aspirin; Z79.899 Other long term (current) drug therapy; Z88.5 Allergy status to narcotic agent; Z88.8 Allergy status to other drugs, medicaments and biological substances
CPT/HCPCS: 30901; 80053; 85025; 85610; 99283; A9270

== ENCOUNTER 2025-10-20 12:12 | Emergency (ER) | payer MEDICARE ==
[~2025-10-20] VITALS: Ht 160 cm; Wt 68.0 kg
[2025-10-20] MEDS ORDERED: CLIN300 PO (14:37)
[2025-10-20 15:43] VITALS: BP 167/90
== END 2025-10-20 16:15 | disposition home or self-care (01) ==
LOC: ER 12:12
DX: R04.0 Epistaxis (principal); E78.5 Hyperlipidemia, unspecified; I10 Essential (primary) hypertension; Z79.82 Long term (current) use of aspirin; Z79.899 Other long term (current) drug therapy; Z88.5 Allergy status to narcotic agent; Z88.8 Allergy status to other drugs, medicaments and biological substances; Z91.048 Other nonmedicinal substance allergy status
CPT/HCPCS: 30903; 99283-25; A9270

== ENCOUNTER 2025-10-22 09:08 | Emergency (ER) | payer MEDICARE ==
[~2025-10-22] VITALS: Ht 160 cm; Wt 68.0 kg
[~2025-10-22 09:08] MED LIST changes: +CLIN300 PO
[2025-10-22 09:32] VITALS: BP 165/85
[2025-10-22] MEDS ORDERED: CLIN300 PO (09:56)
[2025-10-22] MEDS ORDERED: AFRIN15 M6 NS (11:59)
[2025-10-22] MEDS ORDERED: Ketorolac Tromethamine 15mg Vial IV ONE (12:10)
== END 2025-10-22 12:08 | disposition home or self-care (01) ==
LOC: ER 09:08
DX: Z48.813 Encounter for surgical aftercare following surgery on the respiratory system (principal); I10 Essential (primary) hypertension; E78.5 Hyperlipidemia, unspecified; Z79.899 Other long term (current) drug therapy; Z88.8 Allergy status to other drugs, medicaments and biological substances
CPT/HCPCS: 99282

== ENCOUNTER 2025-10-25 20:16 | Emergency (ER) | payer MEDICARE ==
[~2025-10-25] VITALS: Ht 165.1 cm; Wt 63.5 kg
[~2025-10-25 20:16] MED LIST changes: +AFRIN15 M6 NS
[2025-10-25 21:04] LABS: BASOPHILS ABSOLUTE AUTO 0.02 K/mm3 (0.00-0.23); BASOPHILS PERCENT AUTO 0 % (0-2); EOSINOPHILS ABSOLUTE AUTO 0.28 K/mm3 (0.00-0.68); EOSINOPHILS PERCENT AUTO 5 % (0-6); Hematocrit 37.3 % (37.0-53.0); Hemoglobin 11.8 g/dL (13.5-17.5); IMMATURE GRAN ABSOLUTE AUTO 0.02 K/mm3 (0.00-0.10); IMMATURE GRAN PERCENT AUTO 0 % (0-1); LYMPHOCYTES ABSOLUTE AUTO 1.63 K/mm3 (0.84-5.20); LYMPHOCYTES PERCENT AUTO 27 % (21-46); MONOCYTES ABSOLUTE AUTO 0.74 K/mm3 (0.16-1.47); MONOCYTES PERCENT AUTO 12 % (4-13); Mean Corpuscular HGB Conc 31.6 g/dL (31.5-36.5); Mean Corpuscular Volume 107 fL (80-100); NEUTROPHILS ABSOLUTE AUTO 3.34 K/mm3 (1.96-9.15); NEUTROPHILS PERCENT AUTO 56 % (41-73); NRBC ABSOLUTE 0.00 K/mm3 (0.00-0.02); NRBC Auto 0.0 /100 WBC (0.0-0.2); Platelet Count 156 K/mm3 (150-400); RDW Coefficient Variation 12.6 % (11.7-14.2); RDW Standard Deviation 49.9 fL (35.1-46.3)
[2025-10-25 21:57] VITALS: BP 158/88
== END 2025-10-25 21:54 | disposition home or self-care (01) ==
LOC: ER 20:16
PROVIDERS: Student in an Organized Health Care Education/Training Program
DX: R04.0 Epistaxis (principal); I10 Essential (primary) hypertension; E78.5 Hyperlipidemia, unspecified; E11.9 Type 2 diabetes mellitus without complications; G47.33 Obstructive sleep apnea (adult) (pediatric); Z79.82 Long term (current) use of aspirin; Z79.899 Other long term (current) drug therapy; Z88.5 Allergy status to narcotic agent; Z88.8 Allergy status to other drugs, medicaments and biological substances
CPT/HCPCS: 30901; 85025; 99283-25